=== PATIENT | female | born 1970 | race Caucasian/White ===

== ENCOUNTER 2021-04-11 20:28 | Inpatient (IN) ==
[2021-04-11] MEDS ORDERED: Ondansetron 4 MG/2 ML VIAL IVP PRN (23:01)
[2021-04-11] MEDS ORDERED: Naloxone 0.4 MG/ML INJ IVP PRN (23:01)
[2021-04-11] MEDS ORDERED: Acetaminophen 325 MG TABLET PO PRN (23:01)
[2021-04-11] MEDS ORDERED: Melatonin 3 MG TABLET PO PRN (23:01)
[2021-04-11] MEDS: Albuterol 2.5 MG/3 ML NEBULIZER IH PRN (23:19)
[2021-04-11] MEDS ORDERED: Azithromycin 500 MG in 0.9 % Sodium Chloride 250 ML IVPB SCH (23:45)
[2021-04-12] MEDS ORDERED: Ipratropium/Albuterol Neb 3 ML IH SCH (05:00)
[2021-04-12 06:02] LABS: Basophils % 0.2 %; Eosinophils # 0.3 K/mcL (0.0-0.6); Eosinophils % 1.5 %; Hematocrit 40.1 % (35.3-44.9); Hemoglobin 12.4 g/dL (11.5-15.4); Immature Granulocytes % 0.7 % (0-4); Lymphocytes # 1.2 K/mcL (0.6-4.6); Lymphocytes % 5.4 %; Mean Corpuscular HGB Conc 30.9 g/dL (31.6-35.5); Mean Corpuscular Volume 93.7 fL (83.0-100.0); Mean Platelet Volume 9.3 fL (9.4-12.4); Monocytes # 1.1 K/mcL (0.0-1.3); Neutrophils # 19.5 K/mcL (1.6-8.9); Platelet Count 235 K/mcL (140-400); Red Blood Count 4.28 M/mcL (3.82-4.97); Red Cell Distribution Width 13.8 % (11.5-14.5); Segmented Neutrophils % 87.2 %; White Blood Count 22.4 K/mcL (4.3-11.1)
[2021-04-12 06:13] LABS: INR 1.1; Prothrombin Time 13.2 Seconds (9.4-12.1)
[2021-04-12 06:16] LABS: Activated Partial Thrombo Time 24.6 Seconds (26.0-36.0)
[2021-04-12 06:26] LABS: Alanine Aminotransferase 14 Units/L (7-52); Albumin 3.3 g/dL (3.5-5.7); Albumin/Globulin Ratio 1.1 (1.1-2.2); Alkaline Phosphatase 87 Units/L (34-104); Aspartate Amino Transferase 13 Units/L (13-39); BUN/Creatinine Ratio 12 (6-26); Bilirubin,Total 0.5 mg/dL (0.3-1.0); Blood Urea Nitrogen 6 mg/dL (6-20); Calcium 8.7 mg/dL (8.6-10.3); Carbon Dioxide 34 mEq/L (23-29); Chloride 96 mEq/L (98-107); Glucose 114 mg/dL (70-105); Magnesium 1.9 mg/dL (1.6-2.6); Osmolality,Calculated 280 (280-300); Phosphorous 4.2 mg/dL (2.7-4.5); Sodium 136 mEq/L (136-145); Total Protein 6.3 g/dL (6.4-8.9); eGFR For African Americans > 60 (> 60); eGFR For Non-African Americans > 60 (> 60)
[2021-04-12] MEDS: Ipratropium/Albuterol Neb 3 ML IH SCH ×5 (07:38→23:11)
[2021-04-12] MEDS ORDERED: Piperacillin/Tazobactam 3.375 GM in 0.9 % Sodium Chloride Mini Bag 100 ML IVPB SCH (08:00)
[2021-04-12] MEDS ORDERED: Lidocaine -MPF 2% 2 ML VIAL ONE ×2 (08:47→10:57)
[2021-04-12] MEDS ORDERED: *HR* Rocuronium Bromide 50 MG/5 ML VIAL ONE (08:47)
[2021-04-12] MEDS ORDERED: *HR* FentaNYL (PF) 100 MCG/2 ML VIAL ONE ×3 (08:47→13:51)
[2021-04-12] MEDS ORDERED: Lidocaine -MPF 4% 5 ML AMPUL ONE (08:47)
[2021-04-12] MEDS ORDERED: *HR* Propofol 200 MG/20 ML VIAL IVP ONE ×2 (08:47→12:08)
[2021-04-12] MEDS ORDERED: Scopolamine Patch 1.5 MG PATCH.TD72 TD ONE (08:47)
[2021-04-12] MEDS ORDERED: *HR* Succinylcholine 200 MG/10 ML VIAL IVP ONE ×2 (08:47→12:08)
[2021-04-12] MEDS ORDERED: *HR* HYDROmorphone PF 0.5 MG/0.5 ML SYRINGE IVP PRN (08:48)
[2021-04-12] MEDS ORDERED: Ondansetron 4 MG/2 ML VIAL IVP PRN ×2 (08:48→14:46)
[2021-04-12] MEDS ORDERED: Promethazine 6.25 MG in Water for inj. (sterile) 20 ML IVPB PRN (08:48)
[2021-04-12] MEDS ORDERED: Isovue-300 50ML VIAL ONE (09:05)
[2021-04-12] MEDS ORDERED: *HR* Midazolam HCl 2 MG/2 ML VIAL ONE (09:17)
[2021-04-12] MEDS ORDERED: EPHEDrine 50 MG/ML VIAL ONE (09:41)
[2021-04-12] MEDS ORDERED: *HR* Magnesium Sulfate 1 GM/2 ML VIAL ONE (10:57)
[2021-04-12] MEDS: Albuterol 2.5 MG/3 ML NEBULIZER IH PRN (12:00)
[2021-04-12] MEDS ORDERED: Acetaminophen IV 1,000 MG/100 ML BAG IVPB ONE ×2 (12:21→12:24)
[2021-04-12] MEDS ORDERED: Ketorolac 30 MG/ML VIAL IVP ONE (12:21)
[2021-04-12] MEDS ORDERED: Ketorolac 30 MG/ML VIAL ONE (12:23)
[2021-04-12] MEDS ORDERED: *HR* FentaNYL (PF) 100 MCG/2 ML VIAL IVP ONE (13:45)
[2021-04-12] MEDS ORDERED: Melatonin 3 MG TABLET PO PRN (14:46)
[2021-04-12] MEDS ORDERED: Naloxone 0.4 MG/ML INJ IVP PRN (14:46)
[2021-04-12] MEDS ORDERED: *HR* LORazepam 1 MG TABLET PO PRN (14:46)
[2021-04-12] MEDS ORDERED: Ipratropium/Albuterol Neb 3 ML IH PRN (14:46)
[2021-04-12] MEDS ORDERED: Albuterol 2.5 MG/3 ML NEBULIZER IH PRN (14:46)
[2021-04-12] MEDS ORDERED: NON-FORMULARY MEDICATION 1 EACH EACH (Ipratropium/Albuterol Sulfate 120 PUFF Inhaler) IH SCH (14:46)
[2021-04-12] MEDS: Piperacillin/Tazobactam 3.375 GM in 0.9 % Sodium Chloride Mini Bag 100 ML IVPB SCH ×2 (15:23→23:42)
[2021-04-12] MEDS: *HR* OxyCODONE/APAP 5/325 TABLET PO PRN ×2 (15:23→20:50)
[2021-04-12] MEDS: DilTIAZem CD (24hr) 240 MG CAP.ER.24H PO SCH (15:30)
[2021-04-12] MEDS: Ketorolac 15 MG/ML VIAL IVP SCH ×2 (17:24→23:42)
[2021-04-12] MEDS ORDERED: Azithromycin 500 MG in 0.9 % Sodium Chloride 250 ML IVPB SCH (21:00)
[2021-04-13] MEDS: Ipratropium/Albuterol Neb 3 ML IH SCH ×5 (03:33→19:48)
[2021-04-13] MEDS: *HR* OxyCODONE/APAP 5/325 TABLET PO PRN ×3 (03:37→13:54)
[2021-04-13] MEDS: Ketorolac 15 MG/ML VIAL IVP SCH ×4 (05:49→23:45)
[2021-04-13] MEDS: DilTIAZem CD (24hr) 240 MG CAP.ER.24H PO SCH (08:28)
[2021-04-13] MEDS: Piperacillin/Tazobactam 3.375 GM in 0.9 % Sodium Chloride Mini Bag 100 ML IVPB SCH ×3 (08:28→23:45)
[2021-04-13] MEDS ORDERED: Azithromycin 250 MG TABLET PO SCH (21:00)
[2021-04-14] MEDS: Ipratropium/Albuterol Neb 3 ML IH SCH ×3 (00:45→07:21)
[2021-04-14 05:09] LABS: Hemoglobin 10.9 g/dL (11.5-15.4); Mean Corpuscular HGB Conc 30.3 g/dL (31.6-35.5); Mean Corpuscular Hemoglobin 28.5 pg (28.0-33.3); Mean Corpuscular Volume 94.2 fL (83.0-100.0); Mean Platelet Volume 9.7 fL (9.4-12.4); Platelet Count 287 K/mcL (140-400); Red Blood Count 3.82 M/mcL (3.82-4.97); Red Cell Distribution Width 13.9 % (11.5-14.5); White Blood Count 22.2 K/mcL (4.3-11.1)
[2021-04-14 05:24] LABS: BUN/Creatinine Ratio 18 (6-26); Blood Urea Nitrogen 16 mg/dL (6-20); Calcium 8.8 mg/dL (8.6-10.3); Carbon Dioxide 33 mEq/L (23-29); Chloride 93 mEq/L (98-107); Glucose 131 mg/dL (70-105); Osmolality,Calculated 279 (280-300); Potassium 4.4 mEq/L (3.5-5.1); Sodium 133 mEq/L (136-145); eGFR For African Americans > 60 (> 60); eGFR For Non-African Americans > 60 (> 60)
[2021-04-14] MEDS: Ketorolac 15 MG/ML VIAL IVP SCH (05:56)
[2021-04-14 06:51] VITALS: BP 100/52; PULSE 82; TEMP 98.9
[2021-04-14] MEDS: Piperacillin/Tazobactam 3.375 GM in 0.9 % Sodium Chloride Mini Bag 100 ML IVPB SCH (07:36)
[2021-04-14] MEDS: DilTIAZem CD (24hr) 240 MG CAP.ER.24H PO SCH (07:37)
[2021-04-14 17:34] VITALS: O2SAT 92
== END 2021-04-14 10:15 | disposition home or self-care (01) | DRG 263 ==
LOC: 3ANU → SUATTDRO 22:48
PROVIDERS: ADMIT Family Medicine; ATTEND Internal Medicine

== ENCOUNTER 2021-05-06 21:21 | Inpatient (IN) ==
[2021-05-07] MEDS ORDERED: Naloxone 0.4 MG/ML INJ IVP PRN (02:15)
[2021-05-07] MEDS ORDERED: Melatonin 3 MG TABLET PO PRN (02:15)
[2021-05-07] MEDS ORDERED: Ondansetron 4 MG/2 ML VIAL IVP PRN (02:15)
[2021-05-07] MEDS: Ipratropium/Albuterol Neb 3 ML IH SCH ×5 (03:02→20:32)
[2021-05-07] MEDS ORDERED: Nicotine 7 MG PATCH.TD24 TD PRN (03:27)
[2021-05-07] MEDS ORDERED: 0.9 % Sodium Chloride 1,000 ML IVC SCH (03:30)
[2021-05-07 06:07] LABS: Basophils % 0.1 %; Hematocrit 33.1 % (35.3-44.9); Hemoglobin 10.2 g/dL (11.5-15.4); Immature Granulocytes % 0.7 % (0-4); Lymphocytes # 1.3 K/mcL (0.6-4.6); Mean Corpuscular HGB Conc 30.8 g/dL (31.6-35.5); Mean Corpuscular Hemoglobin 27.3 pg (28.0-33.3); Mean Corpuscular Volume 88.5 fL (83.0-100.0); Mean Platelet Volume 9.6 fL (9.4-12.4); Monocytes # 1.3 K/mcL (0.0-1.3); Monocytes % 9.7 %; Neutrophils # 10.7 K/mcL (1.6-8.9); Platelet Count 401 K/mcL (140-400); Red Blood Count 3.74 M/mcL (3.82-4.97); Red Cell Distribution Width 15.7 % (11.5-14.5); Segmented Neutrophils % 79.5 %; White Blood Count 13.4 K/mcL (4.3-11.1)
[2021-05-07 06:18] LABS: INR 1.4; Prothrombin Time 15.5 Seconds (9.4-12.1)
[2021-05-07 06:19] LABS: Activated Partial Thrombo Time 31.8 Seconds (26.0-36.0)
[2021-05-07 06:24] LABS: Alanine Aminotransferase 38 Units/L (7-52); Albumin 3.3 g/dL (3.5-5.7); Albumin/Globulin Ratio 0.8 (1.1-2.2); Alkaline Phosphatase 467 Units/L (34-104); Aspartate Amino Transferase 68 Units/L (13-39); BUN/Creatinine Ratio 13 (6-26); Bilirubin,Total 0.9 mg/dL (0.3-1.0); Blood Urea Nitrogen 11 mg/dL (6-20); Calcium 9.2 mg/dL (8.6-10.3); Carbon Dioxide 30 mEq/L (23-29); Chloride 93 mEq/L (98-107); Globulin 4.1 g/dL (2.4-3.5); Glucose 116 mg/dL (70-105); Osmolality,Calculated 276 (280-300); Potassium 3.8 mEq/L (3.5-5.1); Sodium 133 mEq/L (136-145); Total Protein 7.4 g/dL (6.4-8.9); eGFR For African Americans > 60 (> 60); eGFR For Non-African Americans > 60 (> 60)
[2021-05-07] MEDS: MetroNIDAZOLE 500 MG/100 ML 500 MG/100 ML BAG IVPB SCH ×2 (07:51→15:56)
[2021-05-07] MEDS: Cefepime HCl 2,000 MG in 0.9 % Sodium Chloride Mini Bag 100 ML IVPB SCH ×3 (09:38→23:19)
[2021-05-07] MEDS: Pantoprazole 40 MG VIAL IVP SCH (15:54)
[2021-05-07] MEDS: DilTIAZem CD (24hr) 240 MG CAP.ER.24H PO SCH (15:55)
[2021-05-07] MEDS: 0.9 % Sodium Chloride 1,000 ML IVC SCH ×2 (17:03→21:32)
[2021-05-08] MEDS: Ipratropium/Albuterol Neb 3 ML IH SCH ×7 (00:06→23:41)
[2021-05-08] MEDS: MetroNIDAZOLE 500 MG/100 ML 500 MG/100 ML BAG IVPB SCH ×4 (00:20→23:35)
[2021-05-08 01:09] LABS: Basophils % 0.1 %; Hematocrit 31.4 % (35.3-44.9); Mean Platelet Volume 11.9 fL (9.4-12.4)
[2021-05-08 01:11] LABS: Hemoglobin 9.2 g/dL (11.5-15.4); Immature Platelets 6.5 % (1.1-6.1); Lymphocytes # 1.7 K/mcL (0.6-4.6); Lymphocytes % 15.6 %; Mean Corpuscular HGB Conc 29.3 g/dL (31.6-35.5); Mean Corpuscular Hemoglobin 26.3 pg (28.0-33.3); Mean Corpuscular Volume 89.7 fL (83.0-100.0); Monocytes % 8.7 %; Neutrophils # 8.2 K/mcL (1.6-8.9); Platelet Count 297 K/mcL (140-400); Red Cell Distribution Width 15.8 % (11.5-14.5); Segmented Neutrophils % 74.6 %
[2021-05-08 01:22] LABS: BUN/Creatinine Ratio 14 (6-26); Blood Urea Nitrogen 11 mg/dL (6-20); Calcium 8.7 mg/dL (8.6-10.3); Carbon Dioxide 27 mEq/L (23-29); Chloride 94 mEq/L (98-107); Glucose 104 mg/dL (70-105); Osmolality,Calculated 276 (280-300); Potassium 3.6 mEq/L (3.5-5.1); Sodium 133 mEq/L (136-145); eGFR For African Americans > 60 (> 60); eGFR For Non-African Americans > 60 (> 60)
[2021-05-08] MEDS: DilTIAZem CD (24hr) 240 MG CAP.ER.24H PO SCH (08:07)
[2021-05-08] MEDS: Pantoprazole 40 MG VIAL IVP SCH (08:07)
[2021-05-08] MEDS: Cefepime HCl 2,000 MG in 0.9 % Sodium Chloride Mini Bag 100 ML IVPB SCH ×3 (10:09→23:35)
[2021-05-09] MEDS: Ipratropium/Albuterol Neb 3 ML IH SCH ×3 (03:27→10:57)
[2021-05-09 04:30] LABS: Basophils % 0.2 %; Hematocrit 30.9 % (35.3-44.9); Hemoglobin 9.2 g/dL (11.5-15.4); Immature Granulocytes % 1.1 % (0-4); Lymphocytes # 1.9 K/mcL (0.6-4.6); Lymphocytes % 22.7 %; Mean Corpuscular HGB Conc 29.8 g/dL (31.6-35.5); Mean Corpuscular Hemoglobin 26.7 pg (28.0-33.3); Mean Corpuscular Volume 89.6 fL (83.0-100.0); Mean Platelet Volume 9.7 fL (9.4-12.4); Monocytes # 0.6 K/mcL (0.0-1.3); Monocytes % 7.6 %; Neutrophils # 5.6 K/mcL (1.6-8.9); Platelet Count 371 K/mcL (140-400); Red Blood Count 3.45 M/mcL (3.82-4.97); Red Cell Distribution Width 15.7 % (11.5-14.5); Segmented Neutrophils % 68.4 %; White Blood Count 8.1 K/mcL (4.3-11.1)
[2021-05-09 04:51] LABS: BUN/Creatinine Ratio 11 (6-26); Blood Urea Nitrogen 9 mg/dL (6-20); Calcium 8.5 mg/dL (8.6-10.3); Carbon Dioxide 33 mEq/L (23-29); Chloride 96 mEq/L (98-107); Glucose 131 mg/dL (70-105); Osmolality,Calculated 282 (280-300); Potassium 3.3 mEq/L (3.5-5.1); Sodium 136 mEq/L (136-145); eGFR For African Americans > 60 (> 60); eGFR For Non-African Americans > 60 (> 60)
[2021-05-09] MEDS ORDERED: Potassium Chloride Elixir 20 MEQ/15 ML UDC PO ONE (07:19)
[2021-05-09] MEDS: Pantoprazole 40 MG VIAL IVP SCH (07:46)
[2021-05-09] MEDS: Cefepime HCl 2,000 MG in 0.9 % Sodium Chloride Mini Bag 100 ML IVPB SCH (07:48)
[2021-05-09] MEDS: MetroNIDAZOLE 500 MG/100 ML 500 MG/100 ML BAG IVPB SCH (07:48)
[2021-05-09] MEDS ORDERED: *HR* LORazepam 0.5 MG TABLET PO ONE (08:01)
[2021-05-09] MEDS ORDERED: polyethylene glycoL 3350 17 GM POWD.PACK PO SCH (09:00)
[2021-05-09] MEDS ORDERED: DilTIAZem CD (24hr) 120 MG CAP.ER.24H PO SCH (09:00)
[2021-05-09 10:29] VITALS: BP 100/65; PULSE 71; TEMP 98.1
[2021-05-09 14:26] VITALS: O2SAT 94
== END 2021-05-09 12:09 | disposition home or self-care (01) | DRG 721 ==
LOC: 3ANU → SUATTDRO 05-07 01:10
PROVIDERS: ADMIT Internal Medicine; ATTEND Internal Medicine
PROC: IRDRAIN (2021-05-07 13:00)

== ENCOUNTER 2021-12-02 23:17 | Observation (INO) ==
[2021-12-03] MEDS ORDERED: Naloxone 0.4 MG/ML INJ IVP PRN (01:24)
[2021-12-03] MEDS ORDERED: Ondansetron 4 MG/2 ML VIAL IVP PRN (01:24)
[2021-12-03] MEDS ORDERED: *HR* Heparin 5,000 UNIT/ML VIAL IVP ONE (01:30)
[2021-12-03] MEDS ORDERED: Heparin 25,000UNIT/250ML 1/2NS 25,000 UNIT/250 ML IV.SOLN IVC SCH (01:30)
[2021-12-03] MEDS ORDERED: *HR* Heparin 5,000 UNIT/ML VIAL IVP PRN ×2 (01:30)
[2021-12-03 02:21] LABS: Hemoglobin 14.9 g/dL (11.5-15.4)
[2021-12-03 02:23] LABS: Basophils % 0.1 %; Eosinophils % 0.1 %; Immature Granulocytes % 0.4 % (0-4); Immature Platelets 4.6 % (1.1-6.1); Lymphocytes # 0.6 K/mcL (0.6-4.6); Lymphocytes % 5.7 %; Mean Corpuscular HGB Conc 31.7 g/dL (31.6-35.5); Mean Corpuscular Hemoglobin 29.4 pg (28.0-33.3); Mean Corpuscular Volume 92.9 fL (83.0-100.0); Monocytes # 0.1 K/mcL (0.0-1.3); Monocytes % 0.7 %; Platelet Count 239 K/mcL (140-400); Red Blood Count 5.06 M/mcL (3.82-4.97); Red Cell Distribution Width 12.8 % (11.5-14.5); White Blood Count 11.1 K/mcL (4.3-11.1)
[2021-12-03 02:33] LABS: Alanine Aminotransferase 8 Units/L (7-52); Albumin 4.1 g/dL (3.5-5.7); Albumin/Globulin Ratio 1.1 (1.1-2.2); Alkaline Phosphatase 106 Units/L (34-104); Aspartate Amino Transferase 11 Units/L (13-39); BUN/Creatinine Ratio 14 (6-26); Bilirubin,Total 0.5 mg/dL (0.3-1.0); Blood Urea Nitrogen 10 mg/dL (6-20); Calcium 10.1 mg/dL (8.6-10.3); Carbon Dioxide 32 mEq/L (23-29); Chloride 95 mEq/L (98-107); Globulin 3.9 g/dL (2.4-3.5); Glucose 161 mg/dL (70-105); Magnesium 2.1 mg/dL (1.6-2.6); Neutrophils # 10.3 K/mcL (1.6-8.9); Osmolality,Calculated 285 (280-300); Phosphorous 3.6 mg/dL (2.7-4.5); Potassium 4.6 mEq/L (3.5-5.1); Sodium 136 mEq/L (136-145); Troponin I < 0.03 ng/mL (< 0.04); eGFR For African Americans > 60 (> 60); eGFR For Non-African Americans > 60 (> 60)
[2021-12-03] MEDS: Acetaminophen 325 MG TABLET PO PRN ×2 (02:37→11:08)
[2021-12-03 02:39] LABS: Heparin anti-factor XA UFH < 0.04 IU/mL (0.30-0.70); Prothrombin Time 11.3 Seconds (9.4-12.1)
[2021-12-03] MEDS: Melatonin 3 MG TABLET PO PRN ×2 (03:02→21:28)
[2021-12-03] MEDS ORDERED: Perflutren Lipid Microsphere 1.3 ML in 0.9 % Sodium Chloride 8.7 ML IVP PRN (06:36)
[2021-12-03] MEDS ORDERED: Ipratropium/Albuterol Neb 3 ML IH PRN (06:48)
[2021-12-03] MEDS: Ipratropium/Albuterol Neb 3 ML IH SCH ×4 (08:01→23:47)
[2021-12-03] MEDS ORDERED: Regadenoson 0.4 MG/5 ML SYRINGE IVP ONE (08:27)
[2021-12-04] MEDS: Ipratropium/Albuterol Neb 3 ML IH SCH ×2 (04:06→11:09)
[2021-12-04] MEDS ORDERED: *HR* Enoxaparin 40 MG/0.4 ML SYRINGE SQ SCH (06:00)
[2021-12-04] MEDS ORDERED: DilTIAZem CD (24hr) 120 MG CAP.ER.24H PO SCH (09:00)
[2021-12-04 10:31] VITALS: BP 115/71; PULSE 72; TEMP 98.1; O2SAT 94
== END 2021-12-04 14:53 | disposition home or self-care (01) ==
LOC: 3BNU → SUATTDRO 12-03 01:03
PROVIDERS: ADMIT Family Medicine; ATTEND Registered Nurse